=== PATIENT | female | born 1950 | race Caucasian/White ===

== ENCOUNTER 2021-08-28 02:01 | Inpatient (IN) | payer OTHER ==
[2021-08-28] VITALS (42 sets, daily range): BP systolic 85–157; BP diastolic 48–111
[~2021-08-28] VITALS: Ht 157.5 cm; Wt 50.1 kg
--- NOTE | ~2021-08-28 | EMS ---
[address] [address] EMS Patient Care Report Name: LORY CUETO TANYA Room #: 204-P ADM IN M.R.#: [id number] Admission: 08/28/21 Attend Phys: Shin Clifton DO Discharge: Date of : 48 Report #: [id number] THIS REPORT FOR: //name// Report Transmitted: 08/31/2021 12:52 EMS Care Summary [place], [place]/[facility] Incident [id number] @ 08/28/2021 01:30 Incident Location [id number] [place] [address] Patient ADRIAN CUETO Female, 71 Years 1950 Patient Address [address] [place] [address] Patient History Stroke/CVA, Patient Allergies Penicillin allergy, Patient Medications None Reported, Chief Complaint generalized weakness Disposition Transported No Lights/[place] Dispatch Reason Breathing Problem Transported To [facility] Narrative pt found llr on bedroom floor and alert. pt a&ox4 gcs 15 and did not present in apparent distress. pt complained of generalized weakness x1 hr. pt stated she stood up from bed and felt too weak to walk and she laid down on floor. pts family reported pt didnt fall and just laid down on floor. pt requested to be [address] [address] EMS Patient Care Report Name: LORY CUETO Room #: 204-P ADM IN M.R.#: [id number] Admission: 08/28/21 Attend Phys: Shin Clifton, DO Discharge: Date of : 48 Report #: [id number] transported to the hospital. pt did not state a preference. pt agreed for [facility]. pts family got pt dressed. pt was stood up and pt walked with assistance to ems cot near house. pt was transferred onto ems cot and was secured in a semi fowlers position without incident. pt was loaded into ambulance. pt was transported non emergent. transport was uneventful and pt rested on ems cot. pt care was transferred to appropriate staff and ems goes back in service. at hospital pt stated she did fall at residence, neg loc. Initial Vitals @01:43P: 90,R: 20,BP: 136/44,Pain: 0/10,GCS: 15,Glucose: 120,SpO2: 100,Revised Trauma: 12, @01:57P: 90,R: 20,BP: 118/66,GCS: 15,SpO2: 100,Revised Trauma: 12, Assessments @01:37MENTAL:Place Oriented,Event Oriented,Time Oriented,Person Oriented,SKIN:No Abnormalities,HEENT:Head/Face: No Abnormalities,Eyes: No Abnormalities,Neck/Airway: No Abnormalities,LUNG SOUNDS:General: No Abnormalities,Left Upper: No Abnormalities,Right Upper: No Abnormalities,Left Lower: No Abnormalities,Right Lower: No Abnormalities,ABDOMEN:General: No Abnormalities,Left Upper: No Abnormalities,Right Upper: No Abnormalities,Left Lower: No Abnormalities,Right Lower: No Abnormalities,PELVIS//GI:No Abnormalities,EXTREMITIES:Left Arm: No Abnormalities,Right Arm: No Abnormalities,Left Leg: No Abnormalities,Right Leg: No Abnormalities,PULSE:NEURO:No Abnormalities,@01:51MENTAL:No Abnormalities,SKIN:No Abnormalities,HEENT:Head/Face: No Abnormalities,Eyes: No Abnormalities,Neck/Airway: No Abnormalities,LUNG SOUNDS:General: No Abnormalities,Left Upper: No Abnormalities,Right Upper: No Abnormalities,Left Lower: No Abnormalities,Right Lower: No Abnormalities,ABDOMEN:General: No Abnormalities,Left Upper: No Abnormalities,Right Upper: No Abnormalities,Left Lower: No Abnormalities,Right Lower: No Abnormalities,PELVIS//GI:No Abnormalities,EXTREMITIES:Left Arm: No Abnormalities,Right Arm: No Abnormalities,Left Leg: No Abnormalities,Right Leg: No Abnormalities,PULSE:NEURO:No Abnormalities, Impression Generalized Weakness Procedures @01:37 ALS Assessment Response: UnchangedSucceeded Timeline :,Call Received :,Dispatch Notified :30,Dispatched 01:32,En Route [address] [address] EMS Patient Care Report Name: LORY CUETO TANYA Room #: 204-P ADM IN M.R.#: [id number] Admission: 08/28/21 Attend Phys: Shin Clifton DO Discharge: Date of : 48 Report #: [id number] 01:36,On Scene 01:37,At Patient 01:37,ALS Assessment,Response: UnchangedSucceeded, 01:43,BP: 136/44 M,PULSE: 90,RR: 20 R,SPO2: 100 Ox,ETCO2: ,B,PAIN: 0,GCS: 15, 01:45,Depart Scene 01:57,BP: 118/66 M,PULSE: 90,RR: 20 R,SPO2: 100 Ox,ETCO2: ,BG: ,PAIN: ,GCS: 15, 01:58,At Destination 02:09,Call Closed Disclaimer v1.1 Copyright 2021 [employer] This EMS Care Summary contains data elements from the applicable legal record (which may be displayed differently). It is designed to provide pertinent information for the following purposes: continuity of care, clinical quality, and state data reporting. The complete legal record is available to ED staff and administrators of the receiving hospital in ES's Patient Tracker. All data is provided "as is."
--- NOTE | ~2021-08-28 | EMS ---
[address] [address] EMS Patient Care Report Name: LORY CUETO TANYA Room #: 204-P ADM IN M.R.#: [id number] Admission: 08/28/21 Attend Phys: Shin Clifton DO Discharge: Date of : 48 Report #: [id number] THIS REPORT FOR: //name// Report Transmitted: 08/31/2021 15:10 EMS Care Summary [place], [place]/[facility] Incident [id number] @ 08/28/2021 01:30 Incident Location [id number] [place] [address] Patient ADRIAN CUETO Female, 71 Years 1950 Patient Address [address] [place] [address] Patient History Stroke/CVA, Patient Allergies Penicillin allergy, Patient Medications None Reported, Chief Complaint generalized weakness Disposition Transported No Lights/[place] Dispatch Reason Breathing Problem Transported To [facility] Narrative pt found llr on bedroom floor and alert. pt a&ox4 gcs 15 and did not present in apparent distress. pt complained of generalized weakness x1 hr. pt stated she stood up from bed and felt too weak to walk and she laid down on floor. pts family reported pt didnt fall and just laid down on floor. pt requested to be [address] [address] EMS Patient Care Report Name: LORY CUETO Room #: 204-P ADM IN M.R.#: [id number] Admission: 08/28/21 Attend Phys: Shin Clifton, DO Discharge: Date of : 48 Report #: [id number] transported to the hospital. pt did not state a preference. pt agreed for [facility]. pts family got pt dressed. pt was stood up and pt walked with assistance to ems cot near house. pt was transferred onto ems cot and was secured in a semi fowlers position without incident. pt was loaded into ambulance. pt was transported non emergent. transport was uneventful and pt rested on ems cot. pt care was transferred to appropriate staff and ems goes back in service. at hospital pt stated she did fall at residence, neg loc. Initial Vitals @01:43P: 90,R: 20,BP: 136/44,Pain: 0/10,GCS: 15,Glucose: 120,SpO2: 100,Revised Trauma: 12, @01:57P: 90,R: 20,BP: 118/66,GCS: 15,SpO2: 100,Revised Trauma: 12, Assessments @01:37MENTAL:Place Oriented,Event Oriented,Time Oriented,Person Oriented,SKIN:No Abnormalities,HEENT:Head/Face: No Abnormalities,Eyes: No Abnormalities,Neck/Airway: No Abnormalities,LUNG SOUNDS:General: No Abnormalities,Left Upper: No Abnormalities,Right Upper: No Abnormalities,Left Lower: No Abnormalities,Right Lower: No Abnormalities,ABDOMEN:General: No Abnormalities,Left Upper: No Abnormalities,Right Upper: No Abnormalities,Left Lower: No Abnormalities,Right Lower: No Abnormalities,PELVIS//GI:No Abnormalities,EXTREMITIES:Left Arm: No Abnormalities,Right Arm: No Abnormalities,Left Leg: No Abnormalities,Right Leg: No Abnormalities,PULSE:NEURO:No Abnormalities,@01:51MENTAL:No Abnormalities,SKIN:No Abnormalities,HEENT:Head/Face: No Abnormalities,Eyes: No Abnormalities,Neck/Airway: No Abnormalities,LUNG SOUNDS:General: No Abnormalities,Left Upper: No Abnormalities,Right Upper: No Abnormalities,Left Lower: No Abnormalities,Right Lower: No Abnormalities,ABDOMEN:General: No Abnormalities,Left Upper: No Abnormalities,Right Upper: No Abnormalities,Left Lower: No Abnormalities,Right Lower: No Abnormalities,PELVIS//GI:No Abnormalities,EXTREMITIES:Left Arm: No Abnormalities,Right Arm: No Abnormalities,Left Leg: No Abnormalities,Right Leg: No Abnormalities,PULSE:NEURO:No Abnormalities, Impression Generalized Weakness Procedures @01:37 ALS Assessment Response: UnchangedSucceeded Timeline :,Call Received :,Dispatch Notified :30,Dispatched 01:32,En Route [address] [address] EMS Patient Care Report Name: LORY CUETO TANYA Room #: 204-P ADM IN M.R.#: [id number] Admission: 08/28/21 Attend Phys: Shin Clifton DO Discharge: Date of : 48 Report #: [id number] 01:36,On Scene 01:37,At Patient 01:37,ALS Assessment,Response: UnchangedSucceeded, 01:43,BP: 136/44 M,PULSE: 90,RR: 20 R,SPO2: 100 Ox,ETCO2: ,B,PAIN: 0,GCS: 15, 01:45,Depart Scene 01:57,BP: 118/66 M,PULSE: 90,RR: 20 R,SPO2: 100 Ox,ETCO2: ,BG: ,PAIN: ,GCS: 15, 01:58,At Destination 02:09,Call Closed Disclaimer v1.1 Copyright 2021 [employer] This EMS Care Summary contains data elements from the applicable legal record (which may be displayed differently). It is designed to provide pertinent information for the following purposes: continuity of care, clinical quality, and state data reporting. The complete legal record is available to ED staff and administrators of the receiving hospital in ES's Patient Tracker. All data is provided "as is."
[2021-08-28 02:57] LABS: ABSOLUTE NEUTROPHILS 5.8 thou/uL (1.4-8.2); EOSINOPHILS 3.9 % (0.0-3.0); HEMATOCRIT 34.3 % (37.0-47.0); HEMOGLOBIN 11.1 gm/dL (12.0-15.0); LYMPHOCYTES 27.4 % (24.0-44.0); MCH 30.2 pg (26.0-34.0); MCHC 32.4 g/dL (28.0-37.0); MCV 93.1 fL (80.0-100.0); MONOCYTES 6.5 % (1.0-8.0); PLATELET COUNT 184 thou/uL (150-400); POLYS 61.2 % (36.0-66.0); RBC 3.69 mil/uL (4.20-5.00); RDW 15.1 % (10.5-14.5); WBC 9.4 thou/uL (4.0-11.0)
[2021-08-28] MEDS ORDERED: ASA PO (03:16)
[2021-08-28] MEDS ORDERED: LIPITOR10 MG PO (03:20)
[2021-08-28 03:28] LABS: CALCIUM 9.8 mg/dL (8.5-10.1); POTASSIUM 4.7 mmol/L (3.5-5.1)
[2021-08-28 03:36] LABS: ALBUMIN 3.9 g/dL (3.4-5.0); TOTAL BILIRUBIN 0.4 mg/dL (0.2-1.0); TOTAL PROTEIN 7.1 g/dL (6.4-8.2)
--- NOTE | 2021-08-28 03:40 | NUR ---
LIVES WITH 25 YEAR OLD GRANDSON
--- NOTE | 2021-08-28 04:21 | NUR ---
grandson [phone]
[2021-08-28 04:29] LABS: URINE BILIRUBIN 1+ (Negative); URINE BLOOD NEGATIVE (Negative); URINE CLARITY SL CLOUDY; URINE COLOR YELLOW; URINE GLUCOSE-RANDOM* NEGATIVE (Negative); URINE KETONES NEGATIVE (Negative); URINE LEUKOCYTES-REFLEX NEGATIVE (Negative); URINE NITRITE-REFLEX NEGATIVE (Negative); URINE PROTEIN (DIPSTICK) 2+ (Negative); URINE SPECIFIC GRAVITY >= 1.030 (1.005-1.035)
[2021-08-28 04:59] LABS: BACTERIA-REFLEX 1-9 Few /HPF (None Seen); MUCUS >6 Heavy strn/LPF (None Seen); SQUAMOUS 0-3 Few /LPF (0-3); URINE RBC 3-10 Few /HPF (NONE SEEN); URINE WBC-REFLEX 0-5 Rare /HPF (0-5)
[2021-08-28 05:00] LABS: CELLULAR CASTS 0-3 Few /LPF (None Seen); CRYSTALS None Seen /LPF (None Seen); FINE GRANULAR CASTS 0-3 Few /LPF (None Seen); HYALINE CASTS 4-10 Moderate /LPF (None Seen)
[2021-08-28 06:55] LABS: CHOLESTEROL 128 mg/dL (<200); HDL CHOLESTEROL 52 mg/dL (>40); LDL CHOLESTEROL 63 mg/dL (<100); TC:HDL 2.5 Ratio (Not establshd); TRIGLYCERIDE 65 mg/dL (<150); VLDL 13 mg/dL (<40)
[2021-08-28 07:00] LABS: SERUM ASSESSMENT Clear
--- NOTE | 2021-08-28 07:52 | NUR ---
PT 0700 TROPONIN LEVEL RETURNED BACK AT 1705, WAS PREVIOUSLY [address] MALDONADO OFFICE PAGED TO NOTIFY HIM THE RESULT AT 2520.
--- NOTE | 2021-08-28 08:18 | NUR ---
0530: pt arrived to ICU via bed on room air. pt a&o x 4. denies chest pain. BP systolic in low 90s, MAP above 60. BS 112. afebrile. Pt systolic BP up to 100s at at 0550 0600: systolic BP in the 80s. FANCY PACKER called and notified of pt's status. RN was directed to notify Dr. Soler. RN received orders to adm aspirin and increase NS infusion rate to 150ml/hr. 0610: pt's grandson and grand daughter at bedside 0620: RN received orders to start Dopamine infusion by Dr. Soler. stat troponin and EKG ordered and placed Incoming RN notified of the events happening
--- NOTE | 2021-08-28 10:21 | NUR ---
ORDER NOTED FOR LINE. THE PATIENT DID NOT WAS CENTRAL LINE PLACEMENT IN HER NECK. DISCUSSED PICC PLACEMENT WELL RISKS AND BENIFITS AND SHE AGREED TO PICC PLACEMENT. THE RIGHT UPPER ARM BASILIC WAS WIDLEY PATENT WITH A VEIN TO CATHETER RATIO OF LESS THAN 39%. THE LINE WAS TRIMMED TO 38CM AND ADVANCED WITHOUT DIFFICULTY. THE LINE WAS CONFIRMED WITH 3CG AT 3CM EXTERNAL AT THE CAJ. THE LINE WAS RELEASED FOR USE
--- NOTE | 2021-08-28 11:47 | NUR ---
SPOKE TO THE GRANDSON (NORA) OVER THE PHONE AT 1145, PROVIDED UPDATES, ABLE TO ANSWER QUESTIONS. HE STATED THAT HE WOULD POSSIBLY BE UP TO VISIT TODAY AND INFORMED HIM OF 1 VISITOR AT A TIME TIL 6PM.
--- NOTE | 2021-08-28 13:28 | 2DMMODE ---
[facility] [place] [address] 2 D/M-MODE ECHOCARDIOGRAM Name: ARMINLORY PUENTE TANYA Room #: 244-P ADM IN M.R.#: [id number] Admission: 08/28/21 Attend Phys: James Ingram MD Discharge: Date of : 48 Report #: [id number] THIS REPORT FOR: cc: FAM - No family physician/PCP FAM - No family physician/PCP Raz Soler MD [facility] ~ APPROVED REPORT Study performed: 08/28/2021 11:35:06 EXAM: Comprehensive 2D, Doppler, and color-flow Echocardiogram Patient Location: Bedside Room #: 244 Status: on-call BSA: 1.54 HR: 66 bpm BP: 98/54 mmHg Rhythm: NSR Other Information Study Quality: Adequate Risk Factors: Cardiac Risk Factors: HTN, Hyperlipidemia Indications Non STEMI CAD Chest Pain Hypertension/HDD 2D Dimensions IVSd: 9.63 (7-11mm) LVOT Diam: 18.00 (18-24mm) LVDd: 41.06 mm PWd: 9.92 (7-11mm) Ascending Ao: 33.46 (22-36mm) LVDs: 28.18 (25-40mm) Aortic Root: 27.59 mm LV Single Plane 4CH: 48.00 % LV Single Plane 2CH: 38.31 % Volumes Left Atrial Volume (Systole) Single Plane 4CH: 93.74 mL Single Plane 2CH: 68.50 mL LA ESV Index: 55.00 mL/m2 [facility] [address] [place] [address] 2 D/M-MODE ECHOCARDIOGRAM Name: LORY CUETO TANYA Room #: 244-P ADM IN M.R.#: [id number] Admission: 08/28/21 Attend Phys: James Ingram MD Discharge: Date of : 48 Report #: [id number] Aortic Valve AoV Peak Sudarshan.: 1.52 m/s AO Peak Gr.: 9.20 mmHg LVOT Max P.31 mmHg LVOT Max V: 0.91 m/s BETHANIE Vmax: 1.61 cm2 Pulmonary Valve PV Peak Sudarshan.: 1.04 m/s PV Peak Gr.: 4.34 mmHg Tricuspid Valve TR Peak Sudarshan.: 3.17 m/s RAP Estimate: 10.00 mmHg TR Peak Gr.: 40.24 mmHg PA Pressure: 50.00 mmHg Left Ventricle The left ventricle is normal size. Mod sizes ant-Apicaldistal septal akinesis. There is normal left ventricular wall thickness. Left ventricular systolic function is mildly to moderately decreased. LVEF is 30-35% This study is not technically sufficient to allow evaluation of the LV diastolic function. Right Ventricle The right ventricle is normal size. The right ventricular systolic function is normal. Atria Left atrium is severely dilated. The right atrium size is normal. Aortic Valve The aortic valve is normal in structure. No aortic regurgitation is present. There is no aortic valvular stenosis. Mitral Valve The mitral valve is normal in structure. Mild mitral regurgitation. No evidence of mitral valve stenosis. Tricuspid Valve The tricuspid valve is normal in structure. Mild tricuspid regurgitation. Pulmonary artery pressure is 50 mmHg. Pulmonic Valve The pulmonary valve is normal in structure. There is no pulmonic valvular regurgitation. [facility] [address] [place] [address] 2 D/M-MODE ECHOCARDIOGRAM Name: LORY CUETO [facility] Room #: 244-P [facility] IN M.R.#: [id number] Admission: 08/28/21 Attend Phys: James Ingram MD Discharge: Date of : 48 Report #: [id number] Great Vessels The aortic root is normal in size. The ascending aorta is normal in size. IVC is dilated and collapses <50% with inspiration. Pericardium There is no pericardial effusion. <Conclusion> The left ventricle is normal size. Mod sizes ant-Apical akinesis. Mod sizes ant-Apicaldistal septal akinesis. LVEF is 30-35% This study is not technically sufficient to allow evaluation of the LV diastolic function. The right ventricle is normal size. Left atrium is severely dilated. The aortic valve is normal in structure. Mild mitral regurgitation. Mild tricuspid regurgitation. Pulmonary artery pressure is 50 mmHg. The aortic root is normal in size. There is no pericardial effusion. <ELECTRONICALLY SIGNED> By: Raz Soler MD, [facility] 08/28/21 1327 26 26 Raz Soler MD, [facility] /INF
--- NOTE | 2021-08-28 14:09 | EKG ---
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 : 1950 Requested By: Britt Trotter Order Number: [id number] MD: John Redmond Measurements Intervals [place] Rate: 63 P: -10 DC: 159 QRS: -26 QRSD: 104 T: -68 QT: 484 QTc: 496 Interpretive Statements Sinus rhythm left axis deviation low voltage, extremity leads Nonspecific ST/T abnormalities, diffuse leads Compared to ECG 08/28/2021 02:37:17 Atrial premature complex(es) no longer present Electronically Signed On 08-28-2021 14:09:08 TEACHER OF THE HEARING IMPAIRED by John Redmond [email or web address] <ELECTRONICALLY SIGNED> By: John Redmond MD 08/28/21 1409 5 5 John Redmond MD /EPI
--- NOTE | 2021-08-28 15:06 | NUR ---
PT WORKED WITH PT AND OT THIS AFTERNOON. PT ABLE TO STAND AND WALK 2-3 STEPS WITH ASSISTANCE FROM PT AND NURSING STAFF TO IN ROOM COMMODE TO USE THE RESTROOM. PT REPORTED NO PAIN DURING MOVEMENT. PT PLACED BACK IN BED AND IS RESTING COMFORTABLY.
--- NOTE | 2021-08-28 15:47 | NUR ---
AT 1525 PT SUDDENDLY STARTED C/O OF SUDDEN ONSET OF DIZZINESS, STATED SHE FELT WARM, THEN COLD AND FELT LIKE HAD TO GO TO THE BATHROOM. PT HR JUMPED TO 132, PT COACHED TO SLOW HER BREATHING DOWN AND TO BREATH SLOWLY IN THROUGH THE NOSE AND OUT THROUGH THE MOUTH VIA NC AT 2LPM. COLD WASH CLOTH PLACED ON PT FOREHEAD, HR RETURNED TO 70-80'S RANGE AND PT STATED THAT THE FEELING WENT AWAY. SHE STATES THAT SHE HAS HAD THIS OFF AND ON FOR PAST 2 WEEKS, SIMILAR TO FEELING SHE HAD BEFORE FAINTING AT HOME. NO ECG CHANGES FOUND AT THIS MOMENT AND PT HAS NO FURTHER COMPLAINTS. WILL CONTINUE TO REASSESS AND MONITOR FOR CHANGES. PT C/O OF NO PAIN. CURRENT B/P 132/77 HR 67.
--- NOTE | 2021-08-28 20:00 | NUR ---
PT STATES THAT PRIOR TO ADMISSION HER STORAGE UNIT, WHICH CONTAINED MANY VALUABLES INCLUDING HER GRANDSON'S ASHES WAS AUCTIONED OFF. SHE STATES THAT SHE RAISED HER GRANDSON FROM AGE 1 TO 15 YEARS AND GRANDSON BY CAR ACCIDENT APPROX 4 YEARS AGO. SHE STATES THAT HER DAUGHTER WAS ALLOWED (BY THE BUSINESS) TO REMOVE SOME ITEMS FROM THE UNIT. PER PATIENT, THIS ACTION CAUSED AN ARGUMENT BETWEEN HER AND THE DAUGHTER. PATIENT ALSO STATES THAT THE BUSINESS COULD NOT TELL HER IF THE ASHES WERE SET ASIDE FOR HER. PATIENT WAS VERY TEARFUL DURING THE CONVERSATION AND TACHYCARDIC AT TIMES.
--- NOTE | 2021-08-28 21:00 | NUR ---
PATIENT UP TO BSC WITH MINIMAL ASSIST. PATIENT HR UP TO 130s AND SOB WITH 2 L NC. HR RETURNS TO BASELINE ONCE ACTIVITY IS FINISHED.
--- NOTE | 2021-08-28 21:30 | NUR ---
DOPAMINE GTT TITRATED OFF. WILL CONTINUE TO MONITOR FOR CHANGES.
[2021-08-29] VITALS (25 sets, daily range): BP systolic 125–184; BP diastolic 82–122
--- NOTE | 2021-08-29 05:15 | NUR ---
PT C/O UPPER BACK PAIN - STATES HAS CHRONIC BACK ISSUES AT HOME. PT TACHYCARDIC, PURSED-LIP BREATHING, AND HYPERTENSIVE. CALLED Nicole NESS NP AND ORDERS GIVEN.
[2021-08-29 05:16] LABS: CALCIUM 8.8 mg/dL (8.5-10.1); CREATININE 0.9 mg/dL (0.6-1.0); HEMATOCRIT 31.3 % (37.0-47.0); HEMOGLOBIN 10.2 gm/dL (12.0-15.0); MCHC 32.7 g/dL (28.0-37.0); POTASSIUM 3.7 mmol/L (3.5-5.1); RBC 3.4 mil/uL (4.20-5.00); RDW 14.8 % (10.5-14.5)
[2021-08-29 05:39] LABS: GLYCOHEMOGLOBIN (HGB A1C) 5.7 % (4.8-5.6)
--- NOTE | 2021-08-29 12:00 | NUR ---
GOT APPROVAL FOR TRANSFER TO VIA [facility]. ORDER PLACED. PT TO HAVE HEART CATH ON 08/[address] MALDONADO.
--- NOTE | 2021-08-29 16:10 | NUR ---
PAGED DR. MOSES AT 1555, PROVIDER RETURNED CALL AT 1600. CALLED IN REGARDS TO PT HIGH BLOOD PRESSURE THAT CONTINUES DESPITE PREVIOUS MEDICATIONS BEING GIVEN. INSTRUCTED TO GIVE ONE DOSE NOW OF LISINOPRIL 5MG PO AND IF NEED BE Q4 PRN LABETALOL 10MG SLOW IVP FOR SYSTOLIC BP OVER 160.
[2021-08-30] VITALS (14 sets, daily range): BP systolic 113–156; BP diastolic 63–111
[2021-08-30 02:55] LABS: HEMATOCRIT 33.4 % (37.0-47.0); HEMOGLOBIN 10.8 gm/dL (12.0-15.0); MCH 29.9 pg (26.0-34.0); MCHC 32.2 g/dL (28.0-37.0); MCV 92.9 fL (80.0-100.0); RBC 3.6 mil/uL (4.20-5.00); RDW 14.9 % (10.5-14.5)
[2021-08-30 03:09] LABS: CALCIUM 9.1 mg/dL (8.5-10.1); CREATININE 0.8 mg/dL (0.6-1.0); POTASSIUM 3.6 mmol/L (3.5-5.1)
--- NOTE | 2021-08-30 08:00 | EKG ---
[place] [address] [facility] 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1950 Requested By: Britt Trotter Order Number: [id number] MD: Kolton Graves Measurements Intervals [place] Rate: 74 P: 64 [place]: 173 QRS: -6 QRSD: 91 T: -7 QT: 430 QTc: 477 Interpretive Statements Sinus rhythm Atrial premature complex Nonspecific T wave abnormality Abnormal inferior Q waves No previous ECG available for comparison Electronically Signed On 08-30-2021 8:00:47 GROUNDS KEEPER by Kolton Graves [email or web address] <ELECTRONICALLY SIGNED> By: Kolton Graves MD, [facility] 08/30/21 [phone] Kolton Graves MD, FACC /EPI
--- NOTE | 2021-08-30 08:02 | EKG ---
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 Loom Chain Pegger: : 1950 Requested By: Raz Soler Order Number: [id number] MD: Kolton Graves Measurements Intervals [place] Rate: 63 P: 29 [place]: 168 QRS: -16 QRSD: 93 T: -6 QT: 490 QTc: 502 Interpretive Statements Sinus rhythm Prolonged QT interval Compared to ECG 08/28/2021 02:37:17 Prolonged QT interval now present Atrial premature complex(es) no longer present Electronically Signed On 08-30-2021 8:02:07 FRICKERTRON CHECKER by Kolton Graves [email or web address] <ELECTRONICALLY SIGNED> By: Kolton Graves MD, [facility] 08/30/21 0802 0343 0343 Kolton Graves MD, [facility] /EPI
--- NOTE | 2021-08-30 08:09 | NUR ---
ASSUME CRE 0000 FROM ICU. PT/VITALS STABLE. A/O X 4. INTERMITTENT BACK PAIN INDICATED WITH RELIEF FROM MORPHINE. TOLERATES ACTIVTIY MODERATELY. PT/OT WORKING WITH PT. ASSESSMENT CHARTED. PROGRESSING MODERATELY WITH POC. NO DIUSTRESS THROUGH THE NIGHT. NPO SINCE MIDNIGHT FOR CARDIAC CATHERIZATION TODAY. WILL CONTINUE TO MONITOR AND FOLLOW WITH POC
--- NOTE | 2021-08-30 10:18 | NUR ---
Assumed care of pt this AM. Pt is A&O x4, on 3.5L NC, ST w/ PACs on the monitor. Pt denies any chest pain. Pt tachy & SOA w/ exertion. Pt up to BSC w/ SBA. Pt c/o chr back pain, PRN pain medication given. Pt NPO since midnight except sips w/ morning medications. Plan for cardiac cath today. Consent signed & posted on chart. High fall precautions in place. Frequent rounding in place.
--- NOTE | 2021-08-30 11:45 | NUR ---
PATIENT ADMITTED FOR NSTEMI, HYPOTENSION, LACTIC ACIDOSIS. CHART REVIEWED AND DISCUSSED WITH CARE TEAM. CM MET WITH PT THIS DAY. CM ROLE INTRODUCED. PT REPORTS SHE LIVES AT HOME WITH HER GRANDSON NORA. SHE REPORT NO STEPS INSIDE AND 4 OUTSIDE THE HOME ON THE DECK. SHE REPORTS SHE IS INDEP WITH ADLS AND MOBILITY PRIOR TO ADMISSION. 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 PT REPORTS NO PREVIOUS HH OR SNF/REHAB SERVICES IN THE PAST. PT REPORTS HER HER DICHARGE GOAL IS TO RETURN HOME WITH HER GRANDSON ONCE MEDICALLY STABLE. PT HAS PT/OT ORDERS. CM WILL AWAIT THERAPY RECOMMENDATIONS WHEN AVAILABLE. PT REPORTS HER PCP IS DR NERI BEYER. PATIENTS PRIMARY CONTACTS CONFIRMED. CM WILL CONTINUE TO FOLLOW FOR DISCHARGE PLANNING.
[2021-08-31] VITALS (7 sets, daily range): BP systolic 90–145; BP diastolic 61–76
[2021-08-31 05:21] LABS: HEMATOCRIT 29.7 % (37.0-47.0); HEMOGLOBIN 9.9 gm/dL (12.0-15.0); MCH 30.4 pg (26.0-34.0); MCHC 33.2 g/dL (28.0-37.0); MCV 91.7 fL (80.0-100.0); RBC 3.24 mil/uL (4.20-5.00); RDW 14.5 % (10.5-14.5); WBC 8.7 thou/uL (4.0-11.0)
[2021-08-31 05:44] LABS: CALCIUM 8.7 mg/dL (8.5-10.1); CREATININE 0.9 mg/dL (0.6-1.0)
--- NOTE | 2021-08-31 06:30 | NUR ---
SLEPT MOST OF SHIFT. UP TO BSC WITH STANDBY ASSIST. HEART RATE UP WITH ACTIVITY BUT TOLERATING BETTER. CATH SITE DSG C/D/I AND NO HEMOTOMA TO RIGHT GROIN. CONTINUE TO ASSES.
--- NOTE | 2021-08-31 09:38 | NUR ---
Assumed care of pt this AM. Pt is A&O x4, SR/ ST on the monitor. Receieved pt on 3L NC. Slowly weaning oxygen today as tolerated. Pt reports that she normally does not wear O2 at home. Pt denying pain this AM. Pt is to get up to bathroom today w/ SBA. High fall precautions in place. Pt calls appropriately. Fall education performed.
--- NOTE | 2021-08-31 11:02 | CATHLAB ---
[facility] [place] [address] INVASIVE PROCEDURE REPORT Name: LORY CUETO Room #: 204-P ADM IN M.R.#: [id number] Admission: 08/28/21 Attend Phys: Shin Clifton DO Discharge: Date of : 48 Report #: [id number] THIS REPORT FOR: cc: FAM - No family physician/PCP FAM - No family physician/PCP Raz Soler MD [facility] ~ APPROVED REPORT Study performed: 08/30/2021 12:18:05 Patient Details Patient Status: In-Patient Room #: The patient is a 71 year-old female Event Personnel Raz Soler General Intern, Daria Cast RTR Scrub, Ginny Zarate RTR, [employer] Monitor, Carlos Castrejon RN RN, Bridget Steiner RTR Monitor Procedures Performed Art Access - R femoral artery* Pavan Access - R femoral vein Right and Left Heart Cath w/or w/o Coronarie [id number] [facility] Aortogram Abdominal Peripheral Angio 370905 Hemostasis w/ Mynx Hemostasis with Manual pressure 81261 Initial Mod Sed Same Phys/QHP Gr5y 144197 15799 Mod Sed Same Phys/QHP Ea 856117 Procedure Narrative The Right Groin^ was infiltrated with 1% Lidocaine subcutaneous anesthesia. A PINNACLE 6FR Sheath #[id number] sheath was inserted into the RFA^. Coronary angiography was performed using coronary diagnostic catheters. The right coronary system was accessed and visualized with a JR4 catheter. The left coronary system was accessed and visualized with a JL4 catheter. The left ventricle was accessed and visualized with a PIGTAIL catheter. Left ventriculogram was performed in 30 degree projection. An aortogram of the ascending aorta was performed. Closure device was deployed with a Fr MYNX CONTROL 6F/7F L#[id number]. The patient tolerated the procedure well and there were no complications associated with the procedure. There was no hematoma. Intraoperative Conscious Sedation Sedation start time: 13:11 Case end Time: 15:31 Fentanyl 75 mcg Versed [address] [address] INVASIVE PROCEDURE REPORT Name: LORY CUETO TANYA Room #: 204-P [facility] IN .R.#: [id number] Admission: 08/28/21 Attend Phys: Shin Clifton DO Discharge: Date of : 48 Report #: [id number] Sedation and contrast totals are a combined total of a right and left heart cath and an iliac stenting procedure, and a renal stenting procedure. Fluoro Time: 18.50 minutes Dose: DAP 05268.90 cGycm2 2972 mGy Contrast Type and Amount: Omnipaque 197 ml Hemodynamics The right atrial mean pressure is 13 mmHg. The right ventricular pressure is 53/7 mmHg. The pulmonary artery pressure is 56/21 mmHg with a mean of 32 mmHg. The mean pulmonary capillary wedge pressure is 21 mmHg. The aortic pressure is 121/74 mmHg with a mean of 92 mmHg. The left ventricular pressure is 149/20 mmHg with a mean of mmHg. The left ventricular end diastolic pressure is 36 mmHg. The cardiac output using thermo method is 3.60 L/min. The cardiac index using thermo method is 2.51 L/min/m2. PCI Technique Lesion Percutaneous coronary intervention was performed on the Right Renal. PCI Technique Lesion 2 Percutaneous Coronary Intervention was performed on the Common iliac. Conclusion #1 Left main is short and free of disease giving rise to LAD and circumflex. #2 the LAD is an eccentric proximal lesion off the left main of 60% eccentric then a proximal mid lesion 60 to 70% there is moderate calcification in this vessel then extends around to the apex fairly well-preserved. #3 circumflex OM mild disease proximally moderate distribution 50 to 60% proximal lesion giving rise to a large distal OM #4 dominant right coronary artery with moderate disease throughout the proximal and mid vessel. At the bifurcation distally 60 to 70% with a preserved PDA CHER free of disease #5 mildly dilated left ventricle. There is apical ballooning anterior apical inferior severely hypokinetic this is consistent with a Takatsubo phenomenon. (This does follow a very intense emotional distress occurrence) ejection fraction 35 to 40% range #6 aortoiliac angiography revealing a high-grade right common iliac stenosis. Also evidence of a high-grade left renal artery stenosis. Dr. Waggoner of interventional radiology will intervene. I left the wire up [facility] [address] [place] [address] INVASIVE PROCEDURE REPORT Name: LORY CUETO Room #: 204-P ADM IN M.R.#: [id number] Admission: 08/28/21 Attend Phys: Shin Clifton DO Discharge: Date of : 48 Report #: [id number] #7 successful right heart catheterization with cardiac output by thermodilution. See above hemodynamics. Recommendations and plan: Continue aggressive risk factor modification. IV Lasix has been given there was right heart catheterization performed in addition. With moderate elevation pulmonary pressures and wedge pressure. Patient does have moderate coronary disease. But this clinical setting is classic for this intense emotional event. We will follow the proximal LAD and proximal mid LAD lesions. Patient transferred to CCU pain-free stable condition. IV Lasix has been given for further diuresis. <ELECTRONICALLY SIGNED> By: Raz Soler MD, FACC 08/31/211101 01 01 Raz Soler MD, FACC /INF
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
--- NOTE | 2021-08-31 16:50 | NUR ---
CHART REVIEWED AND DISCUSSED WITH CARE TEAM. PT NOT MEDICALLY STABLE TO DC THIS DAY. CM SPOKE TO PHYSICIAN WHO INDICATED PT WILL MOST LIKELY DC TOMORROW. PT RECOMMEND PT GO HOME WITH NO NEEDS. OT STILL AWAITING THERAPY RECOMMENDATIONS. AT THIS TIME NO CM INTERVENTIONS INDICATED. CM WILL CONTNIUE TO FOLLOW FOR OT RECOMMENDATIONS AND DC PLANNING AND ARANGE INDICATED.
[2021-09-01 01:35] VITALS: BP 109/77
[2021-09-01 04:40] VITALS: BP 97/54
[2021-09-01 05:34] LABS: HEMATOCRIT 37.9 % (37.0-47.0); HEMOGLOBIN 11.6 gm/dL (12.0-15.0); MCH 28.6 pg (26.0-34.0); MCHC 30.7 g/dL (28.0-37.0); RBC 4.07 mil/uL (4.20-5.00); WBC 6.3 thou/uL (4.0-11.0)
[2021-09-01 05:39] LABS: CALCIUM 9.2 mg/dL (8.5-10.1); CREATININE 0.9 mg/dL (0.6-1.0); POTASSIUM 4.5 mmol/L (3.5-5.1)
--- NOTE | 2021-09-01 05:42 | NUR ---
RECEIEVED PATIENT AT 1900H.ASSESSMENT DONE CHARTED.MEDS GIVEN PER SEP.ALL NEEDS ATTENDED.TO CONTINOUSLY MONITOR.
[2021-09-01 07:25] VITALS: BP 98/65
[2021-09-01] MEDS ORDERED: CLOPIDOGREL75 MG PO (10:10)
[2021-09-01] MEDS ORDERED: ASPIRIN325 PO (10:10)
[2021-09-01] MEDS ORDERED: DEMADEX20 MG PO (10:10)
[2021-09-01] MEDS ORDERED: METOPROLOL SUCC25 M1 PO (10:10)
[2021-09-01 10:39] VITALS: BP 98/65
[2021-09-01 10:57] VITALS: BP 96/62
[2021-09-01 11:42] VITALS: BP 98/65
--- NOTE | 2021-09-01 11:43 | NUR ---
PT MEDICALLY STABLE TO DC THIS DAY. CM MET WITH PT THIS DAY TO DISCUSS HOME HEALTH CHOICE. PT INFORMED CM SHE DID NOT NEED HOME HEALTH. SHE REPORTS SHE LIVES IN 4 BEDROOM HOME WITH GRANDSON BUT ROOMS ARE SMALL AND SHE HAS NO CONCERNS WITH DC HOME NEEDS. SHE REPORTS HER SONS GIRLFRIEND WHO LIVES IN THE HOME WORKS IN HOME HEALTH AND WILL HELP SHOULD SHE NEED ANYTHING. PT INSTRUCTED TO NOTIFY PCP NERI BEYER SHOULD SHE CHANGE HER MIND AND THEY CAN HELP HER ARRANGE. PT VOICED UNDERSTANDING. NO FURTHER CM NEEDS INDICATED. DR VALENCIA.
[2021-09-02] MEDS ORDERED: LIPITOR10 MG PO (14:07)
[2021-09-02] MEDS ORDERED: CLOPIDOGREL75 MG PO (14:07)
[2021-09-02] MEDS ORDERED: METOPROLOL SUCC25 M1 PO (14:07)
[2021-09-13] MEDS ORDERED: DEMADEX20 MG PO (08:15)
== END 2021-09-01 16:10 | disposition home health service (06) | DRG 673 ==
LOC: ER 02:01 → 2N 04:40 → EROBS 04:40 → ICU 05:07 → 2N 08-29 22:54
PROVIDERS: Emergency Medicine; Nuclear Medicine Nuclear Cardiology; Nurse Practitioner; Nurse Practitioner Family; ADMIT Pediatrics; ATTEND Pediatrics
PROC: 05HY33Z Insertion of Infusion Device into Upper Vein, Percutaneous Approach (ICD-10-PCS; principal; 2021-08-28)
PROC: B2151ZZ Fluoroscopy of Left Heart using Low Osmolar Contrast (ICD-10-PCS; 2021-08-30)
PROC: B41D1ZZ Fluoroscopy of Aorta and Bilateral Lower Extremity Arteries using Low Osmolar Contrast (ICD-10-PCS; 2021-08-30)
PROC: B4101ZZ Fluoroscopy of Abdominal Aorta using Low Osmolar Contrast (ICD-10-PCS; 2021-08-30)
PROC: B4181ZZ Fluoroscopy of Bilateral Renal Arteries using Low Osmolar Contrast (ICD-10-PCS; 2021-08-30)
PROC: 4A023N8 Measurement of Cardiac Sampling and Pressure, Bilateral, Percutaneous Approach (ICD-10-PCS; 2021-08-30)
PROC: 04793DZ Dilation of Right Renal Artery with Intraluminal Device, Percutaneous Approach (ICD-10-PCS; 2021-08-30)
PROC: B2111ZZ Fluoroscopy of Multiple Coronary Arteries using Low Osmolar Contrast (ICD-10-PCS; 2021-08-30)
PROC: 047C3DZ Dilation of Right Common Iliac Artery with Intraluminal Device, Percutaneous Approach (ICD-10-PCS; 2021-08-30)
DX: I70.1 Atherosclerosis of renal artery (principal); I21.4 Non-ST elevation (NSTEMI) myocardial infarction; R57.0 Cardiogenic shock; I50.23 Acute on chronic systolic (congestive) heart failure; N39.0 Urinary tract infection, site not specified; E87.2 Acidosis; G90.8 Other disorders of autonomic nervous system; I25.5 Ischemic cardiomyopathy; Z20.822 Contact with and (suspected) exposure to COVID-19; I95.9 Hypotension, unspecified; I25.10 Atherosclerotic heart disease of native coronary artery without angina pectoris; M19.90 Unspecified osteoarthritis, unspecified site; K21.9 Gastro-esophageal reflux disease without esophagitis; E78.00 Pure hypercholesterolemia, unspecified; I65.21 Occlusion and stenosis of right carotid artery; E78.5 Hyperlipidemia, unspecified; R53.81 Other malaise; M81.0 Age-related osteoporosis without current pathological fracture; I11.0 Hypertensive heart disease with heart failure; G47.00 Insomnia, unspecified; I73.9 Peripheral vascular disease, unspecified; E87.6 Hypokalemia; I95.89 Other hypotension; E53.8 Deficiency of other specified B group vitamins; Z88.0 Allergy status to penicillin; Z90.710 Acquired absence of both cervix and uterus; Z86.73 Personal history of transient ischemic attack (TIA), and cerebral infarction without residual deficits; Z79.899 Other long term (current) drug therapy
CPT/HCPCS: 10078; 10081; 27000